=== PATIENT | female | born 1950 | race American Indian/Alaskan Native ===

== ENCOUNTER 2017-08-19 08:57 | Day surgery (SDC) | payer MEDICARE ==
[~2017-08-19 08:57] MED LIST: ANCEF/STERILE WATER 2 GM/20 ML IV NR; NACL 0.9% 1000 ML 1,000 ML IV SCH
[2017-08-19] MEDS ORDERED: NACL BACTERIOSTATIC INFILTRATI ONE (09:50)
--- NOTE | 2017-08-19 10:19 | Anesthesia Consultation ---
Anesthesia Consult and Med Hx Date of service: 08/19/17 - Airway Anesthetic Teeth Evaluation: Poor, Chipped ROM Head & Neck: Adequate Mental/Hyoid Distance: Adequate Mallampati Class: Class III Intubation Access Assessment: Difficult - Pulmonary Exam CTA: Yes - Cardiac Exam Cardiac Exam: RRR - Pre-Operative Health Status ASA Pre-Surgery Classification: ASA3 Proposed Anesthetic Plan: General - Pulmonary Hx Smoking: No Hx Asthma: Yes (INHALER PRN) Hx Sleep Apnea: No (NISHA PRE SCREEN HIGH RISK) - Cardiovascular System Hx Hypertension: Yes (X 10 YRS) - Central Nervous System Hx Seizures: Yes (ON DAILY MEDS-LAST SEIZURE 2006) Hx Back Pain: Yes - Hematic Hx Anemia: Yes - Other Systems Hx Cancer: No
--- NOTE | 2017-08-19 10:29 | Anesthesia Day of Surgery ---
Anesthesia Day of Surgery - Day of Surgery Patient Examined: Yes Patient H&P Reviewed: Yes Patient is NPO: Yes
[2017-08-19 10:37] LABS: Hemoglobin 12.9 gm/dl (10.1-14.3)
[2017-08-19] MEDS ORDERED: DIPRIVAN 10 MG/ML IV ONE (10:53)
[2017-08-19] MEDS ORDERED: VERSED IV NR (11:00)
[2017-08-19] MEDS ORDERED: PEPCID IV NR (11:00)
[2017-08-19] MEDS ORDERED: SUBLIMAZE ONE (11:19)
[2017-08-19] MEDS ORDERED: OMNIPAQUE 300 MG/50 ML (CATH LAB) IV ONE (11:39)
[2017-08-19] MEDS ORDERED: ZEMURON IV ONE (11:43)
[2017-08-19] MEDS ORDERED: DECADRON ONE (11:43)
[2017-08-19] MEDS ORDERED: XYLOCAINE MPF 2% ONE (11:43)
[2017-08-19] MEDS ORDERED: QUELICIN ONE (11:43)
[2017-08-19] MEDS ORDERED: NEOSTIGMINE ONE (11:43)
[2017-08-19] MEDS ORDERED: ROBINUL ONE (11:43)
[2017-08-19] MEDS ORDERED: ZOFRAN ONE (11:43)
[2017-08-19] MEDS ORDERED: LACTATED RINGERS 1,000 ML ONE (11:48)
--- NOTE | 2017-08-19 12:07 | Short Stay Summary ---
Short Stay Documentation Date of service: 08/19/17 - History H&P: obtained from office - Allergies and Medications Current Medications: Allergies codeine Allergy (Verified 08/15/17 09:23) HALLUNCINATIONS Home Medications Medication Instructions Recorded Confirmed Last Taken Type ALBUTEROL Inhaler [Proair] 2 puff IH QID PRN 08/15/17 08/19/17 2 Months Ago History ~06/19/17 Cholecalciferol (Vitamin D3) 10,000 unit PO DAILY 08/15/17 08/19/17 1 Week Ago History [Vitamin D3] ~08/12/17 Lacosamide [Vimpat] 100 mg PO Q12HR 08/15/17 08/15/17 08/18/17 History Metoprolol [Lopressor] 100 mg PO DAILY 08/15/17 08/15/17 08/18/17 History amLODIPine [Norvasc] 5 mg PO DAILY 08/15/17 08/15/17 08/18/17 History Active Medications Cefazolin Sodium (Ancef/Sterile Water 2 Gm/20 Ml) 2 gm IV PREOP NR Stop: 08/19/17 23:00 Famotidine (Pepcid) 20 mg IV PREOP NR Stop: 08/19/17 23:59 Last Admin: 08/19/17 10:34 Dose: 20 mg Sodium Chloride (Nacl 0.9% 1000 Ml) 1,000 mls @ 100 mls/hr IV DIRECT ANNE Last Admin: 08/19/17 09:55 Dose: 100 mls/hr Midazolam HCl (Versed) 2 mg IV PREOP NR Stop: 08/19/17 23:59 Last Admin: 08/19/17 10:37 Dose: 2 mg - Brief post op/procedure progress note Date of procedure: 08/19/17 Pre-op diagnosis: rt distal stone, left renal stone (9mm) - staged Post-op diagnosis: same Procedure: cysto, rpg, rt ballon, basket stone, ureteroscopy, with external string Anesthesia: JASON Surgeon: JUANPABLO COELHO Estimated blood loss: minimal Pathology: none Condition: stable - Hospital course Hospital course: ciproprasannaid, post op info on chart - Disposition Condition at discharge: Stable Disposition: DC-01 TO HOME OR SELFCARE Short Stay Discharge Plan Follow up with: GALILEA VITALE MD [Primary Care Provider] - 7 Days
[2017-08-19 13:44] VITALS: BP 139/78
--- NOTE | 2017-08-19 14:00 | Operative Report ---
PREOPERATIVE DIAGNOSIS: Right distal ureteral stone, left 9 mm renal stone. POSTOPERATIVE DIAGNOSES: Right distal ureteral stone, left 9 mm renal stone. PROCEDURE: Cystoscopy, bilateral retrograde pyelograms, balloon dilatation, right ureter, basket stone extraction, double-J stent with an external string (6-Japanese 24 cm). SURGEON: Tomas Bess MD ANESTHESIA: General. ESTIMATED BLOOD LOSS: Minimal. FLUIDS: Crystalloid. COMPLICATIONS: No complications. INDICATIONS: This patient is a 66-year-old female seen in the office with flank pain. CT of abdomen and pelvis revealed multiple calcifications in the pelvis, left renal stone, right hydronephrosis with difficulty identifying the cause of the hydronephrosis. She presents now for surgical intervention. DESCRIPTION OF PROCEDURE: The patient was taken to the operative suite, placed in a supine position. After adequate general anesthesia, placed in a dorsal lithotomy position, prepped and draped in a sterile fashion. On wine blender film you could see, she has bilateral hip replacements, artifact made it difficult to see the stone on CT. Bladder obvious stone at the ureteral orifice on the right side. Bilateral retrograde pyelograms were obtained with an 8-Japanese Marta catheter and 8 mL of contrast. On the left side, no hydronephrosis. Obvious 9 mm stone in the lower pole kidney. Right side small wisp of dye up the ureter due to an obstructing stone. Two 0.035 Glidewires were placed in the right collecting system, balloon dilatation with a 4 cm balloon. Rigid ureteroscopy was performed. Everett basket was used. The stone was extracted. Ureteroscopy to the renal pelvis no other calcifications could be appreciated. A 6-Japanese 24 cm double-J stent with an external string was placed. The patient's bladder was drained. She was extubated and taken to recovery room. She will go home on Cipro and Dilaudid. JOB# [id number] [facility]
--- NOTE | 2017-08-19 14:17 | Post Anesthesia Evaluation ---
- Post Anesthesia Evaluation Patient Participated: Yes Airway Patent: Yes Stable Respiratory Function: Yes Temp > 96.8F: Yes Pain Manageable: Yes Adequeate Hydration: Yes Anesthesia Complications: No
--- NOTE | 2017-08-20 08:04 | Fluoroscopy Report ---
FLUOROSCOPY RETROGRADE UROGRAPHY: FLUOROSCOPY URETER/NEPHROSTOMY DILATATION RIGHT: HISTORY: Right ureteral stone. FINDINGS: Fluoroscopy was provided by radiology during retrograde urography by the urologist. 11 fluoroscopic images were captured. Quality Control Supervisor film demonstrates an approximate 5 mm calcification in the right side of the pelvis overlying the expected position of the distal right ureter. Following injection of contrast agent into the right collecting system moderate right hydronephrosis is demonstrated. Per the operative notes, right ureteroscopy was performed. The right ureteral stone was extracted with a basket. Subsequent images demonstrate placement of a right ureteral stent with good drainage of the right renal collecting system on the final image. Please correlate with the procedural report as needed. The left pyelogram is normal. IMPRESSION: Right ureteral stone removal. Right ureteral stent placement.
== END 2017-08-19 13:48 | disposition home or self-care (01) ==
LOC: OR 08:57
PROVIDERS: ATTEND Urology
DX: N13.2 Hydronephrosis with renal and ureteral calculous obstruction (principal); J45.909 Unspecified asthma, uncomplicated; I10 Essential (primary) hypertension; K21.9 Gastro-esophageal reflux disease without esophagitis; Z88.5 Allergy status to narcotic agent; Z79.899 Other long term (current) drug therapy
CPT/HCPCS: 36415; 52330; 52332; 52344; 74420; 74485; 82962; 85014; 85018; C1726; C1758; C1769; C2617; J0330; J0690; J1100; J2250; J2405; J2704; J2710; J3010; J7030; J7120; Q9967

== ENCOUNTER 2017-11-21 06:04 | Day surgery (SDC) | payer MEDICARE ==
[~2017-11-21 06:04] MED LIST changes: -NACL 0.9% 1000 ML 1,000 ML IV SCH
[2017-11-21] MEDS ORDERED: NACL BACTERIOSTATIC INFILTRATI ONE (06:53)
[2017-11-21] MEDS ORDERED: SUBLIMAZE ONE (07:10)
[2017-11-21] MEDS ORDERED: DIPRIVAN 10 MG/ML IV ONE (07:10)
[2017-11-21] MEDS ORDERED: XYLOCAINE MPF 2% ONE (07:10)
[2017-11-21] MEDS ORDERED: ZOFRAN IV PRN (07:23)
--- NOTE | 2017-11-21 07:24 | Anesthesia Day of Surgery ---
Anesthesia Day of Surgery - Day of Surgery Patient Examined: Yes Patient H&P Reviewed: Yes Patient is NPO: Yes
[2017-11-21] MEDS ORDERED: DILAUDID IV NR (07:36)
[2017-11-21] MEDS ORDERED: PEPCID IV NR (07:37)
--- NOTE | 2017-11-21 07:46 | Anesthesia Day of Surgery ---
Anesthesia Day of Surgery - Day of Surgery Patient Examined: Yes Patient H&P Reviewed: Yes Patient is NPO: Yes
[2017-11-21] MEDS ORDERED: LACTATED RINGERS 1,000 ML IV SCH (08:00)
[2017-11-21] MEDS ORDERED: VERSED IV NR (08:00)
--- NOTE | 2017-11-21 08:18 | Anesthesia Consultation ---
Anesthesia Consult and Med Hx Date of service: 11/21/17 - Airway Anesthetic Teeth Evaluation: Poor ROM Head & Neck: Adequate Mental/Hyoid Distance: Adequate Mallampati Class: Class II Intubation Access Assessment: Probably Good - Pre-Operative Health Status ASA Pre-Surgery Classification: ASA2 Proposed Anesthetic Plan: General - Pulmonary Hx Smoking: No Hx Asthma: Yes (INHALER PRN) Hx Sleep Apnea: No (NISHA PRE SCREEN HIGH RISK) - Cardiovascular System Hx Hypertension: Yes (X 10 YRS) - Central Nervous System Hx Seizures: Yes (ON DAILY MEDS-LAST SEIZURE 2006) Hx Back Pain: Yes - Hematic Hx Anemia: Yes - Other Systems Hx Cancer: No Hx Obesity: Yes (BMI 37)
[2017-11-21] MEDS ORDERED: QUELICIN ONE (08:43)
--- NOTE | 2017-11-21 09:35 | Short Stay Summary ---
Short Stay Documentation Date of service: 11/21/17 Narrative H&P: 67 yr old female with left 8mm renal stone - History Past Medical History: hypertension Past Surgical History: total hip replacement Social history: no significant social history - Allergies and Medications Current Medications: Allergies codeine Allergy (Verified 08/15/17 09:23) HALLUNCINATIONS Home Medications Medication Instructions Recorded Confirmed Last Taken Type ALBUTEROL Inhaler [Proair] 2 puff IH QID PRN 08/15/17 11/21/17 2 Months Ago History ~06/19/17 Cholecalciferol (Vitamin D3) 10,000 unit PO DAILY 08/15/17 11/21/17 11/13/17 09: 00 History [Vitamin D3] Lacosamide [Vimpat] 100 mg PO Q12HR 08/15/17 11/21/17 11/20/17 22:30 History Metoprolol [Lopressor] 100 mg PO DAILY 08/15/17 11/21/17 11/20/17 23:00 History amLODIPine [Norvasc] 5 mg PO DAILY 08/15/17 11/21/17 11/20/17 23:00 History Active Medications Cefazolin Sodium (Ancef/Sterile Water 2 Gm/20 Ml) 2 gm IV PREOP NR Stop: 11/21/17 23:00 Famotidine (Pepcid) 20 mg IV ONCE NR Stop: 11/21/17 10:00 Last Admin: 11/21/17 07:37 Dose: 20 mg Hydromorphone HCl (Dilaudid) 0.5 mg IV Q10MIN PRN PRN Reason: Pain , Severe (7-10) Stop: 11/21/17 12:00 Lactated Ringer's (Lactated Ringers) 1,000 mls @ 100 mls/hr IV DIRECT ANNE Last Admin: 11/21/17 07:35 Dose: 100 mls/hr Midazolam HCl (Versed) 2 mg IV PREOP NR Stop: 11/21/17 23:59 Last Admin: 11/21/17 07:51 Dose: 2 mg Ondansetron HCl (Zofran) 4 mg IV ONCE PRN PRN Reason: Nausea And Vomiting Stop: 11/21/17 10:00 - Physical exam General appearance: no acute distress, well-nourished Integumentary: no rash HEENT: Atraumatic, PERRLA, EOMI Lungs: Clear to auscultation Female Genitourinary: normal Rectal Exam: deferred Extremities: no ischemia, No edema Neurological: Normal gait - Brief post op/procedure progress note Date of procedure: 11/21/17 Pre-op diagnosis: left renal stone Post-op diagnosis: same Procedure: ESWL - left Anesthesia: GETA Surgeon: JUANPABLO COELHO Condition: stable - Hospital course Hospital course: dilaudid & post op info on chart - Disposition Condition at discharge: Stable Disposition: DC-01 TO HOME OR SELFCARE Short Stay Discharge Plan Follow up with: GALILEA VITALE MD [Primary Care Provider] - 7 Days
[2017-11-21] MEDS: DILAUDID IV PRN ×2 (09:50→10:02)
[2017-11-21] MEDS ORDERED: ePHEDrine SULFATE ONE (10:04)
--- NOTE | 2017-11-21 10:32 | Operative Report ---
PREOPERATIVE DIAGNOSIS: Left renal stone, 8 mm. POSTOPERATIVE DIAGNOSIS: Left renal stone, 8 mm. PROCEDURE: Left extracorporal shock wave lithotripsy. SURGEON: Tomas Bess MD ANESTHESIA: General. ESTIMATED BLOOD LOSS: Minimal. FLUIDS: Crystalloid. COMPLICATIONS: No complications. INDICATIONS: This patient is a 67-year-old female seen by Dr. Janet Welsh in the office. She was referred for kidney stones. She had a right ureteroscopy and stone removal in July. She presents now for the left stone treatment. She makes a calcium oxalate stone. Risks, benefits, and complications were explained. The patient agreed to proceed with surgical intervention. DESCRIPTION OF PROCEDURE: The patient was taken to the operative suite, placed in a supine position. After adequate general anesthesia, her stone was localized in 2 planes using fluoroscopy. Extracorporal shockwave lithotripsy was administered with a maximum kV of 4 2500 shocks. A 3-minute renal pause after 200 shocks was performed. Adequate fragmentation could be appreciated. The patient tolerated the procedure well. She was extubated and taken to recovery room. She will go home on Dilaudid and follow up in the office. JOB# [id number] [facility]/TIM
[2017-11-21 10:38] VITALS: BP 126/83
--- NOTE | 2017-11-21 13:09 | Post Anesthesia Evaluation ---
- Post Anesthesia Evaluation Patient Participated: Yes Airway Patent: Yes Stable Respiratory Function: Yes Nausea/Vomiting: No Temp > 96.8F: Yes Pain Manageable: Yes Adequeate Hydration: Yes Anesthesia Complications: No
== END 2017-11-21 11:03 | disposition home or self-care (01) ==
LOC: OR 06:04
PROVIDERS: ATTEND Urology
DX: N20.0 Calculus of kidney (principal); I10 Essential (primary) hypertension; J45.909 Unspecified asthma, uncomplicated; K21.9 Gastro-esophageal reflux disease without esophagitis; M19.90 Unspecified osteoarthritis, unspecified site; E66.9 Obesity, unspecified; Z68.37 Body mass index [BMI] 37.0-37.9, adult; Z79.899 Other long term (current) drug therapy; Z88.5 Allergy status to narcotic agent; Z90.49 Acquired absence of other specified parts of digestive tract; Z96.643 Presence of artificial hip joint, bilateral
CPT/HCPCS: 50590; 82962; J0330; J0690; J1170; J2250; J2405; J2704; J3010; J7120